=== PATIENT | female | born 1980 | race Two or more races ===

== ENCOUNTER 2016-04-23 10:05 | Emergency (ER) | payer MEDICAID ==
[~2016-04-23] VITALS: Ht 154.9 cm; Wt 89.8 kg
[~2016-04-23 10:05] MED LIST: CEPHALEXIN; FLUT100M7; FLUT44AE; MONT4CHW; OME20GT; OME40GT; PHEN95TA; TRAM-411; TRAMADOL; [UNRECOGNIZED DRUG - CODE]
[2016-04-23 11:07] VITALS: BP 132/74
== END 2016-04-23 12:01 | disposition home or self-care (01) ==
LOC: ER 10:05
DX: J45.909 Unspecified asthma, uncomplicated (principal); K21.9 Gastro-esophageal reflux disease without esophagitis